=== PATIENT | female | born 1930 | race Caucasian/White ===

== ENCOUNTER 2020-03-18 22:16 | Inpatient (IN) | payer MEDICARE, OTHER ==
[~2020-03-18] VITALS: Ht 165.1 cm; Wt 64.7 kg
[~2020-03-18 22:16] MED LIST: ASPI81CH PO; B-COMPLEX WITH1 EAC1 PO; Calcium +D & M1 EACH PO; Cardizem LA240 MG PO; ENOX30I SC; FENTANYL1 EAC9 TD; GABA300 PO; HYDACE5 PO; LEVSOD125 PO; LEVSOD150 PO; LEVSOD25; METO25ER PO; Multiple Vitam1 EAC1 PO; OMEP20ER PO; OXYACE5T PO; OXYC10ER PO; OXYC5 PO; PRED5; PROM25 PO; RANI150 PO; SULTRIDS PO; XARELTO15 MG PO
[2020-03-18 23:00] LABS: Hematocrit 46.4 % (33.0-51.0); Hemoglobin 14.7 g/dL (11.5-16.0); Mean Corpuscular HGB 33.5 pg (26.0-34.0); Mean Corpuscular HGB Conc 31.7 g/dL (31.5-36.5); Mean Corpuscular Volume 106 fL (80-100); Mean Platelet Volume 8.7 fL (9.1-12.4); Platelet Count 213 K/mm3 (150-400); RDW Coefficient Variation 12.6 % (11.7-14.2); RDW Standard Deviation 49.7 fL (35.1-46.3); Red Blood Cell Count 4.39 M/mm3 (3.80-5.20); White Blood Cell Count 1.97 K/mm3 (4.00-11.30)
[2020-03-18 23:17] LABS: Alanine Aminotransfer (ALT/SGP 14 U/L (12-78); Albumin, Blood 2.9 g/dL (3.4-5.0); Albumin/Globulin Ratio 0.8 (0.8-1.8); Alk Phos 48 U/L (50-136); Anion Gap 7 mmol/L (6-16); Aspartate Aminotrans (AST/SGOT 30 U/L (12-37); Bilirubin, Total 0.7 mg/dL (0.1-1.0); Blood Urea Nitrogen 22 mg/dL (8-24); Bun/Creatinine Ratio 23.5 (12.0-20.0); CO2, Blood 28 mmol/L (21-32); Calcium, Blood 8.5 mg/dL (8.5-10.1); Chloride, Blood 100 mmol/L (98-108); Creatinine, Blood 0.94 mg/dL (0.40-1.00); Globulin, Blood 3.5 g/dL (2.2-4.0); Glomerular Filtration Rate >60 (60-); Glucose, Blood 166 mg/dL (70-99); Potassium, Blood 4.4 mmol/L (3.5-5.5); Sodium, Blood 135 mmol/L (136-145); Total Protein, Blood 6.4 g/dL (6.4-8.2)
[2020-03-18 23:37] LABS: BAND PERCENT MAN 31 % (0-8); BASOPHILS ABSOLUTE MAN 0.01 K/mm3 (0.00-0.23); BASOPHILS PERCENT MAN 1 % (0-2); EOSINOPHILS PERCENT MAN 0 % (0-6); LYMPHOCYTES ABSOLUTE MAN 0.27 K/mm3 (0.84-5.20); LYMPHOCYTES PERCENT MAN 14 % (21-46); MONOCYTES ABSOLUTE MAN 0.19 K/mm3 (0.16-1.47); MONOCYTES PERCENT MAN 10 % (4-13); NEUTROPHILS ABSOLUTE MAN 1.47 K/mm3 (1.96-9.15); SEG NEUTROPHILS PERCENT MAN 44 % (41-73); TOTAL CELLS COUNTED 100
[2020-03-19 00:56] LABS: CHOL/HDL RATIO 2.3; Cholesterol 146 mg/dL (50-200); HDL Cholesterol 64 mg/dL (>39); Low Density Lipoprotein Chol 64 mg/dL (0-110); Triglycerides 89 mg/dL (30-160); Very Low Density Lipoprot Chol 17 mg/dL (6-32)
--- NOTE | 2020-03-19 01:40 | NUR ---
0134 PT ADMITTED TO ROOM 343 PER CART FROM ER AFTER SLIDE TO BED X 4 ASSIST; PT VERY DROUSY; ABLE TO FOLLOW SIMPLE VERBAL COMMANDS; REPORT RECEIVED FROM CONNOR RN, ER NURSE
[2020-03-19] MEDS ORDERED: SULTRIDS PO (02:13)
--- NOTE | 2020-03-19 02:13 | NUR ---
THIS NURSE CALLED DR HUNT AND CONFIRMED MD DESIRES NGT PLACEMENT.
[2020-03-19] MEDS ORDERED: PROM25 PO (02:14)
--- NOTE | 2020-03-19 05:19 | NUR ---
Pt vomitting At 0215 RN was placing NG Tube causing pt to vomit. Changed linens, gown and did partial bed bath. Pt all cleaned up and now resting peacefully.
--- NOTE | 2020-03-19 05:52 | NUR ---
SHIFT SUMMARY: 89 Y/O FEMALE RESTED COMFORTABLY ALL SHIFT; PTS RIGHT KNEE DRESSING DRY AND INTACT WITH 3 X 3 CM OLD DRIED DRAINAGE NOTED; PTS HAD LARGE EMESIS BLACK FOOD PARTICLES WHEN NGT WAS INITIALLY INSERTED VIA LEFT NARE WITH NO MORE EMESIS NOTED; PROTONIX INFUSING AT 10ML/HR; ALERT AND ORIENTED X 4; VERY DROWSY AT TIMES, HOWEVER; ABLE TO FOLLOW ALL SIMPLE VERBAL COMMANDS; PT CURENTLY NPO; DENIES ABD PAIN; BED ALARM APPLIED, BED LOW POSITION WITH CALL LIGHT AT SIDE.
[2020-03-19 07:43] LABS: Source, Urine Clean Catch
[2020-03-19 07:48] LABS: Appearance, Urine Hazy (Clear); Blood, Urine 2+ (Neg); Color, Urine Yellow (P-Yellow); Glucose Qualitative, Urine 1+ (Neg); Ketones, Urine 1+ (Neg); Leukocyte Esterase, Urine 2+ (Neg); Nitrite, Urine Neg (Neg); Protein, Urine 2+ (Neg); Urobilinogen, Urine NORM (Normal)
[2020-03-19 07:54] LABS: Bilirubin, Urine 1+ (Neg)
[2020-03-19 07:58] LABS: Bacteria Mod /hpf; Red Blood Cells, Urine 0-2 /hpf (0-2); Squamous Epithelial Cells Few /hpf (Few)
[2020-03-19 08:00] LABS: Other Crystals Many /hpf
--- NOTE | 2020-03-19 08:00 | NUR ---
WHEN I CAME ON SHIFT THE PATIENT'S HEARTRATE WAS 133. SHE HAD A VEWS SCORE OF [address] FOWLER AND CHECKED WITH THE PATIENT. NEW VITALS TAKEN. ONE 5MG PUSH OF LOPRESSOR GIVEN PRIOR TO THE Q6 CUT OFF PER DR. FOWLER ORDERS. PATIENTS HEART RATE LOWERED TO 105. PATIENT WAS SEEN BY DR. GILMORE. SHE IS TO HAVE SURGERY THIS MORNING. CONSULT PLACED IN CHART, NO ACUTE CONCERNS AT THIS TIME MINUS THE ABDOMINAL PAIN. SHE CURRENTLY HAS AN NG TUBE AND IS NPO. SHE COMPLAINS OF CONCERN ABOUT HER DAUGHTER BEING AWARE OF WHAT IS GOING ON. WILL NOTIFY THE DAUGHTER WHEN SHE GOES TO OR PER PATIENT REQUEST.
--- NOTE | 2020-03-19 08:34 | NUR ---
History, Chart, Medications and Allergies reviewed before start of procedure. Patient confirms NPO status and agrees with scheduled surgery. Pre-Op teaching done. Pt verbalizes understanding. pt with ng tube.
--- NOTE | 2020-03-19 09:07 | NUR ---
03/19/20 0907 Kathy Jain PT ON SCHEDULED ANTIBIOTICS
--- NOTE | 2020-03-19 09:14 | NUR ---
CALLED DAY RN FOR REPORT. RN UNAVAILABLE AND WILL CALL BACK WITH REPORT WHEN ABLE.
--- NOTE | 2020-03-19 10:00 | NUR ---
PT ARRIVED S/P EXPLORATORY LAPROSCOPY FROM OR. NO MOVEMENT SEEN AT THIS TIME. PT REMAINS PARALYZED AT THIS TIME. PROPOFOL AT 20 MCG/KG/MIN ADDED FOR PT COMFORT AT THIS TIME. PT WILL REMAINS INTUBATED AT THIS TIME OR TEAM IS CONCERNED PT ASPIRATED WHEN SHE VOMITED IN THEIR UNIT. LUNGS ARE CLEAR BUT DIMINISHED IN THE BILATERAL BASES. SP02 >90% ON VENT SETTINGS OF AC-20/TV-400/P-5-FI02 100%. HOWEVER, PT'S EXTREMITIES ARE VERY COOL AND IT IS DIFFICULT TO OBTAIN CONSISTENT SP02 READING. HR REGULAR, SLIGHTLY IRREGULAR AT TIMES WITH FREQUENT PAC'S, RATE INITIALLY 80'S RANGE. ABD SOFT/FLAT/WITH VERY HYPOACTIVE BT'S X4 QUADS. PT HAS A MOISES MIDLINE DRSG THAT IS C/D/I WITH A SUMEET DRAIN TO RT LOWER QUADS DRAINING SEROSANGUINOUS FLD. MARS CATH DRAINING HAZY DARK, TEA COLORED URINE.
--- NOTE | 2020-03-19 10:00 | NUR ---
POLAR PACK PLACED ON RT KNEE R/T VERY RECENT (COMPLICATED) RT KNEE REPLACEMENT.
[2020-03-19 11:11] LABS: Hematocrit 42.3 % (33.0-51.0); Mean Corpuscular HGB 33.5 pg (26.0-34.0); Mean Corpuscular HGB Conc 30.7 g/dL (31.5-36.5); Mean Corpuscular Volume 109 fL (80-100); Platelet Count 158 K/mm3 (150-400); RDW Coefficient Variation 13.1 % (11.7-14.2); RDW Standard Deviation 52.4 fL (35.1-46.3); Red Blood Cell Count 3.88 M/mm3 (3.80-5.20); White Blood Cell Count 3.95 K/mm3 (4.00-11.30)
--- NOTE | 2020-03-19 11:15 | NUR ---
DR LAMAS IN TO CONSULT ON PT. UPDATED DR ON PT'S CURRENT STATUS. PT'S ETT/NGT PLACEMENT CONFIRMED PER STAT CHEST XRAY DONE ONCE PT ARRIVED TO THE UNIT.
[2020-03-19 11:43] LABS: BAND PERCENT MAN 21 % (0-8); BASOPHILS PERCENT MAN 0 % (0-2); EOSINOPHILS PERCENT MAN 0 % (0-6); LYMPHOCYTES ABSOLUTE MAN 0.51 K/mm3 (0.84-5.20); LYMPHOCYTES PERCENT MAN 13 % (21-46); METAMYELOCYTE ABSOLUTE MAN 0.03 K/mm3 (0.00-0.00); METAMYELOCYTE PERCENT MAN 1 % (0-0); MONOCYTES ABSOLUTE MAN 0.27 K/mm3 (0.16-1.47); MONOCYTES PERCENT MAN 7 % (4-13); NEUTROPHILS ABSOLUTE MAN 3.12 K/mm3 (1.96-9.15); SEG NEUTROPHILS PERCENT MAN 58 % (41-73); TOTAL CELLS COUNTED 100
[2020-03-19 11:48] LABS: Albumin, Blood 1.9 g/dL (3.4-5.0); Albumin/Globulin Ratio 0.7 (0.8-1.8); Bun/Creatinine Ratio 24.6 (12.0-20.0); Calcium, Blood 7.3 mg/dL (8.5-10.1); Creatinine, Blood 1.14 mg/dL (0.40-1.00); Globulin, Blood 2.8 g/dL (2.2-4.0); Potassium, Blood 4.8 mmol/L (3.5-5.5); Total Protein, Blood 4.7 g/dL (6.4-8.2)
[2020-03-19 13:49] LABS: PCO2 Arterial 36.8 mmHg (35-45); PO2 Arterial 241 mmHg (80-100); pH Blood Arterial 7.38 (7.35-7.45)
--- NOTE | 2020-03-19 14:56 | NUR ---
Upon receiving an admit referral for spiritual care, I visit patient. Patient is non responsive to voice or touch. I tell patient who I am and what department I am from. Based on the information gathered at admit stating Cheondoism as patient's belief system, I pray a Cheondoism prayer. I notice no changes. I will continue to remain available to patient and family.
--- NOTE | 2020-03-19 17:10 | NUR ---
PT MEDICATED WITH FENTANYL IV SHE OPENED HER EYES AND INDICATED SHE HAD PAIN IN HER ABD DURING REPOSITIONING.
--- NOTE | 2020-03-19 17:39 | NUR ---
DR LUGO TO THE BEDSIDE TO ASSESS PT. CHANGED JURGEN DRSG TO RT KNEE AFTER CLEANING WITH HYDROGEN PEROXIDE. SCD'S IN PLACE BILATERAL, CLEARED TO BE ON RT LE PER DR LUGO. WORKING ON OBTAINING AN CPM MACHINE PER DR'S REQUEST. SEE NEW THERAPY AND WOUND CARE ORDERS FOR FURTHER DIRECTION ON CARE OF RT KNEE.
--- NOTE | 2020-03-19 18:34 | NUR ---
SHIFT SUMMARY: PT REMAINS INTUBATED AND SEDATED WITH 20MCG/KG/MIN OF PROPOFOL FOR COMFORT. PT WITH NO MOVEMENT SEEN MOST THE SHIFT UNTIL THE LAST REPOSITION, WHERE PT'S EYES OPENED, PT GRIMACED AND WHEN ASKED WHERE HER PAIN WAS, PT PATTED BELLY. PT MEDICATED WITH PROPOFOL AND APPEARS TO BE RESTING COMFORTABLY SINCE. PT HAS HAD A LT SIDED MASTECTOMY AND PRESSURE READ LOW WHEN PT INITIALY ARRIVED TO ICU AND BP WAS BEING TAKEN ON THE LT SIDE. LUNGS ARE CLEAR BUT REMAIN SOMEWHAT DIMINISHED IN THE BILATERAL BASES. HR SR/ST 90-100'S RANGE. PT REMAINS ON LR @ 200ML/HR AT THIS TIME. ZOSYN BEING GIVEN FOR ABX COVERAGE. PT HAD A TOTAL RT KNEE YESTERDAY 02/15 AND WAS D/C'D HOME YESTERDAY AFTERNOON. PT'S KNEE IS EDEMATOUS, WITH SIGNIFICANT ECCYMOSIS AND WHAT APPEARS TO BE HEMATOMA IN THE POSTERIOR KNEE. KRYSTAL HOSE/SCD'S ON BILATERALLY PER DR LUGO AND PT TO START CPM AND PASSIVE ROM WITH OT/PT UNTIL SHE IS FULLY AWAKE AND ABLE TO PARTICIPATE IN THERAPY HERSELF. PT WITH NGT TO RT NARES WITH SM AMT OF DARK BROWN OUTPUT FROM L.I.S. ABD SOFT/FLAT/NON-TENDER. MOISES WOUND DRSG REMAINS IN PLACE MID-LINE WITH RLQ SUMEET DRAIN WITH CONTINUED MODERATE AMTS OF SEROSANGUINOUS FLD. MARS DRAINING HAZY DARK TEA COLORED URINE. 325ML OUT THIS SHIFT. IN PLACE
--- NOTE | 2020-03-19 19:15 | NUR ---
REPORTED OFF TO THAIS JIMÉNEZ WHOM IS NOW GOING TO ASSUME CARE OF THIS PT.
[2020-03-19 22:51] LABS: Source, Urine Catheter
[2020-03-19 22:53] LABS: Bilirubin, Urine Neg (Neg); Blood, Urine 5+ (Neg); Glucose Qualitative, Urine Neg (Neg); Ketones, Urine Neg (Neg); Leukocyte Esterase, Urine Neg (Neg); Nitrite, Urine Neg (Neg); Protein, Urine 2+ (Neg); Specific Gravity, Urine 1.015 (1.003-1.022); Urobilinogen, Urine NORM (Normal)
[2020-03-19 22:55] LABS: Appearance, Urine Clear (Clear); Color, Urine Yellow (P-Yellow)
[2020-03-19 23:03] LABS: Amorphous Light (0-Heavy); Bacteria Few /hpf; Granular Casts 25-50 /lpf (0); Red Blood Cells, Urine 0-2 /hpf (0-2); Squamous Epithelial Cells Few /hpf (Few); White Blood Cells, Urine Rare /hpf (0-5)
--- NOTE | 2020-03-20 01:46 | NUR ---
ASSUMED PT CARE AT 1915 FROM THAIS MAHMOOD PT INTUBATED AND SEDATED. PT STILL ABLE TO OPEN EYES, NOD HEAD YES/NO TO QUESTIONS, AND FOLLOW COMMANDS WITH PROPROFOL AT 30MCG/KG/MIN. VENT SETTINGS: AC 14, TV 400, PEEP 5, FIO2 40%. PT HAS MOISES WOUND VAC TO MID ABDOMEN S/P EXPLORATORY LAP R/T PERFORATED DUODENOL ULCER. SUMEET DRAIN NOTED TO RLQ WITH MODERATE AMOUNTS OF SEROSANGUINEOUS DRAINAGE NOTED. RIGHT KNEE HAS AQUACEL INTACT WITH MINIMAL DRIED DRAINAGE NOTED TO DRESSING; CPM MACHINE ON AND NOTED TO BE AT 30 DEGREES OF FLEXION. POLAR ICE MACHINE WAS ALSO NOTED TO BE INTACT TO RIGHT KNEE D/T SWELLING/HEMATOMA. PT MEDICATED WITH FENTANYL FOR PAIN, WHICH PT WAS ABLE TO NOD HEAD "YES" TO MEDICATION BEING EFFECTIVE FOR PAIN. MARS CATHETER IS PATENT AND DRAINING DARK, DOLLY COLORED URINE TO GRAVITY; UA SENT D/T MARS BEING PLACED FOR SURGERY AND REMAINED IN PLACE D/T PT REMAINING INTUBATED/SEDATED. BILATERAL SOFT WRIST RESTRAINTS IN PLACE TO PROTECT VITAL TUBES/LINES.
[2020-03-20 03:26] LABS: Hematocrit 34.3 % (33.0-51.0); Hemoglobin 10.8 g/dL (11.5-16.0); Mean Corpuscular HGB 33.9 pg (26.0-34.0); Mean Corpuscular HGB Conc 31.5 g/dL (31.5-36.5); Mean Corpuscular Volume 108 fL (80-100); Platelet Count 145 K/mm3 (150-400); RDW Coefficient Variation 13.1 % (11.7-14.2); RDW Standard Deviation 52.7 fL (35.1-46.3); Red Blood Cell Count 3.19 M/mm3 (3.80-5.20); White Blood Cell Count 4.54 K/mm3 (4.00-11.30)
[2020-03-20 03:41] LABS: Albumin, Blood 2.8 g/dL (3.4-5.0); Anion Gap 9 mmol/L (6-16); Blood Urea Nitrogen 26 mg/dL (8-24); CO2, Blood 22 mmol/L (21-32); Calcium, Blood 7.6 mg/dL (8.5-10.1); Chloride, Blood 107 mmol/L (98-108); Creatinine, Blood 1.04 mg/dL (0.40-1.00); Glomerular Filtration Rate 53 (60-); Glucose, Blood 71 mg/dL (70-99); Phosphorus, Blood 2.5 mg/dL (2.5-4.9); Potassium, Blood 4.3 mmol/L (3.5-5.5); Sodium, Blood 138 mmol/L (136-145)
[2020-03-20 04:34] LABS: BAND PERCENT MAN 44 % (0-8); BASOPHILS PERCENT MAN 0 % (0-2); EOSINOPHILS PERCENT MAN 0 % (0-6); LYMPHOCYTES ABSOLUTE MAN 0.13 K/mm3 (0.84-5.20); LYMPHOCYTES PERCENT MAN 3 % (21-46); METAMYELOCYTE ABSOLUTE MAN 0.09 K/mm3 (0.00-0.00); METAMYELOCYTE PERCENT MAN 2 % (0-0); MONOCYTES ABSOLUTE MAN 0.18 K/mm3 (0.16-1.47); MONOCYTES PERCENT MAN 4 % (4-13); MYELOCYTE ABSOLUTE MAN 0.04 K/mm3 (0.00-0.00); MYELOCYTE PERCENT MAN 1 % (0-0); NEUTROPHILS ABSOLUTE MAN 4.08 K/mm3 (1.96-9.15); SEG NEUTROPHILS PERCENT MAN 46 % (41-73); TOTAL CELLS COUNTED 100
--- NOTE | 2020-03-20 06:29 | NUR ---
END OF SHIFT SUMMARY NO SIGNIFICANT CHANGES SINCE LAST ENTRY. PT REMAINS INTUBATED AND SEDATED. PROPOFOL AT 20MCG/KG/MIN. VENT SETTINGS: SPONTANEOUS WITH PRESSURE SUPPORT 7/5; FIO2 35%; RESP RATE 14-20'S; TV >350. PT PASSED SBT THIS MORNING, SEE RT NOTE. PT ABLE TO OPEN EYES TO VERBAL STIMULI, FOLLOW COMMANDS, AND NOD HEAD YES/NO TO QUESTIONS. MID ABDOMINAL, MOISES DRESSING, REMAINS CDI. SUMEET DRAIN CONTINUES TO DRAIN SEROSANGUINEIOUS DRAINAGE; ABOUT 80CC THIS SHIFT. RIGHT KNEE AQUACEL DRESSING REMAINS CDI. POLAR ICE PACK USED PER ORDERS. PT IS CURRENTLY RECEIVING CPM AT 45 DEGREES FLEXION; WILL INCREASE TO 90 TOLERATED BY PT AND PER ORDERS. MARS CATHETER REMAINS PATENT AND DRAINING DARK, TEA COLORED URINE TO GRAVITY. LR INFUSING AT 200MLS/HR VIA PERIPHERAL IV. BILATERAL WRIST RESTRAINTS REMAIN IN PLACE TO PROTECT VITAL TUBES/LINES. WILL CONTINUE TO MONITOR UNTIL REPORT IS HANDED OFF TO ONCOMING RN.
--- NOTE | 2020-03-20 07:15 | NUR ---
AM ASSESSMENT: PT REMAINS INTUBATED AND LIGHTLY SEDATED ON TITRATED PROPOFOL. PT WILL OPEN EYES TO VERBAL STIMULI AND ABLE TO ANSWER SIMPLE YES/NO QUESTIONS AND INDICATE WHERE HER PAIN IS. PT REMAINS IN SOFT/BILAT WRIST RESTRAINTS AT THIS TIME. LUNGS ARE CLEAR BUT VERY DIM IN THE RT BASES. SPO2 >90% ON VENT SETTINGS: SPOTANEOUS MODE/TV-400/P-5/FI02 35%. PT DOING WELL AND STAYING CALM ON SPONTANEOUS MODE WITH TV'S 350-400. HR IRREGULAR, SR ARRHYTHMIA AT TIMES WHEN HR IS INCREASED WITH OCASS/FREQ PAC'S. RATE 100-110'S. ABD IS MORE DISTENDED/FIRM THIS AM IN COMPARISON TO YESTERDAY/TENDER TO LIGHT PALPATION R/T SURGICAL REPAIR OR PERFORATION. MOISES WOUND VAC REMAINS IN PLACE TO MIDLINE INCISON. SUMEET DRAIN TO RLQ DRAINING SM AMT OF SEROSANGUIOUS FLD. MARS CATH DRAINING SMALL AMTS OF DARK DOLLY COLORED URINE TO GRAVITY. PT CURRENTLY HAS ICE TO HER RT KNEE R/T S/P TOTAL KNEE SURGERY DONE THIS LAST SUNDAY. PT CURRENTLY REC'ING CPM THERAPY ON RT KNEE. AQUACELL IN PLACE TO RT KNEE C/D/I WITH A LARGE AMT OF ECCHYMOSIS SURROUNDING SURGICAL SITE, WORSE AT THE POSTERIOR KNEE.
--- NOTE | 2020-03-20 07:16 | NUR ---
REC'D BEDSIDE REPORT FROM THAIS JIMÉNEZ AND AM NOW ASSUMING CARE OF PT. PT WILL OPEN EYES TO VOICE AND SHOOK HER HEAD YES, WHEN ASKED IF SHE WAS IN PAIN. PT NODDED AGAIN WHEN ASKED IF THE PAIN WAS IN HER ABD AND RT KNEE. PT MEDICATED W/FENTANYL IVP PER ORDERS FOR PAIN.
--- NOTE | 2020-03-20 09:00 | NUR ---
DR FOWLER HERE TO ASSESS PT. UPDATED WITH PT'S CURRENT STATUS AND POSSIBLE EXTUBATION.
--- NOTE | 2020-03-20 09:15 | NUR ---
DR LAMAS IN TO ASSESS PT. PROPOFOL DECREASED TO 15MCG/KG/MIN TO WAKE PT MORE IS ATTEMPT AT EXTUBATION. PT REMAINS CALM AT THIS TIME. SEE NEW ORDERS. LR DECREASED TO 75ML/HR.
--- NOTE | 2020-03-20 12:00 | NUR ---
PT EXTUBATED: PT EXTUBATED AFTER DOING WELL ON SPONTANEOUS MODE THIS AM. PT EXTUBATED BY RT KERA. PT PLACED ON 4L 02 VIA N/C AND MAINTAINS >90% ON RA. PT IMMEDIATELY ASKED FOR WATER. PT GIVEN ORAL SWABS TO CLEAN OUT MOUTH. WILL CONTINUE TO CLOSELY MONITOR PT.
--- NOTE | 2020-03-20 12:24 | NUR ---
PT C/O "VERY SORE THROAT." DISCUSSED WITH DR LAMAS. ORDERED LOZENGES TO ASSIST WITH SORE THROAT.
--- NOTE | 2020-03-20 19:00 | NUR ---
SHIFT SUMMARY: PT ALERT AND ORIENTED SINCE EXTUBATION. PT ABLE TO SELF SX THICK/DARK BROWN SPUTUM, AMT IS DECREASING PER PT. CALL LIGHT WITHIN REACH AND PT ABLE TO MAKE NEEDS KNOWN. INCREASE IN BT'S HEARD IN THE UPPER QUADRANTS, REMAINS VERY HYPO IN THE BILATERAL LOWER QUADS. PT WITH MIDLINE DRSG THAT IS A SM AMT OF DRIED BLOOD, OTHERWISE C/D/I WITH MOISES DRSG IN PLACE AND SUMEET DRAIN IN RT LOWER QUAD WITH SEROSANGUINOUS DRAINAGE -30ML OUT TODAY. PT STARTED ON PPN TODAY PER ORDERS. MARS WITH DARK DOLLY COLORED URINE DRAINING. RT KNEE WITH MUCH IMPROVEMENT IN REGARDS TO ECCHYMOSIS/SWELLING TODAY. PT WAS MEDICATED SEVERAL TIMES W/FENTANYL PER ORDERS FOR ABD/RT KNEE PAIN, WHICH WAS HELPFUL IN REDUCING PAIN FOR A SHORT PERIOD OF TIME. 2 TX'S OF CPM DONE ON THIS SHIFT, AND ICE BEING APPLIED PER ORDERS. PT WAS FEBRILE THIS SHIFT. WILL CONTINUE TO MONITOR. -PCU STATUS, TNX WHEN BED IS AVAILABLE.
--- NOTE | 2020-03-20 19:30 | NUR ---
REPORTED OFF TO THAIS KNIGHT WHOM IS NOW ASSUMING CARE OF THIS PT.
--- NOTE | 2020-03-20 20:00 | NUR ---
ASSUMED CARE OF PT AT 1915. REPORT RECEIVED AT BEDSIDE. PT PRESENTS IN BED. ALERT AND ORIENTED. PLEASANT AND COOPERATIVE WITH CARE AND ASSESSMENT. SUMEET DRAIN COMPRESSED. PIKOS DRESSING REMAINS TO SUCTION. PT DOES HAVE BOWEL TONES. CRYO PACK TO RIGHT KNEE. WILL REVIEW CHART AND PLAN OF CARE FOR THIS PT.
[2020-03-21 03:30] LABS: Hematocrit 33.7 % (33.0-51.0); Hemoglobin 10.7 g/dL (11.5-16.0); Mean Corpuscular HGB 33.4 pg (26.0-34.0); Mean Corpuscular HGB Conc 31.8 g/dL (31.5-36.5); Mean Corpuscular Volume 105 fL (80-100); Platelet Count 162 K/mm3 (150-400); RDW Coefficient Variation 13.2 % (11.7-14.2); RDW Standard Deviation 51.7 fL (35.1-46.3)
[2020-03-21 03:46] LABS: Albumin, Blood 2.3 g/dL (3.4-5.0); Anion Gap 6 mmol/L (6-16); Blood Urea Nitrogen 27 mg/dL (8-24); Bun/Creatinine Ratio 33.8 (12.0-20.0); CO2, Blood 26 mmol/L (21-32); Calcium, Blood 7.5 mg/dL (8.5-10.1); Chloride, Blood 109 mmol/L (98-108); Glomerular Filtration Rate >60 (60-); Glucose, Blood 92 mg/dL (70-99); Magnesium, Blood 2.2 mg/dL (1.6-2.4); Phosphorus, Blood 2.1 mg/dL (2.5-4.9); Potassium, Blood 3.7 mmol/L (3.5-5.5); Sodium, Blood 141 mmol/L (136-145); Triglycerides 83 mg/dL (30-160)
[2020-03-21 04:50] LABS: BAND PERCENT MAN 26 % (0-8); BASOPHILS PERCENT MAN 0 % (0-2); EOSINOPHILS ABSOLUTE MAN 0.08 K/mm3 (0.00-0.68); EOSINOPHILS PERCENT MAN 1 % (0-6); LYMPHOCYTES ABSOLUTE MAN 0.48 K/mm3 (0.84-5.20); LYMPHOCYTES PERCENT MAN 6 % (21-46); METAMYELOCYTE ABSOLUTE MAN 0.16 K/mm3 (0.00-0.00); METAMYELOCYTE PERCENT MAN 2 % (0-0); MONOCYTES ABSOLUTE MAN 0.24 K/mm3 (0.16-1.47); MONOCYTES PERCENT MAN 3 % (4-13); NEUTROPHILS ABSOLUTE MAN 7.12 K/mm3 (1.96-9.15); SEG NEUTROPHILS PERCENT MAN 62 % (41-73); TOTAL CELLS COUNTED 100
--- NOTE | 2020-03-21 07:22 | NUR ---
PT HAS HAD THIRD OF THREE TIMES WITH CPM DURING EVENING TIME. PT TOLERATED WELL AFTER BEING MEDICATED WITH 50 MCG FENTANYL. PT HAS HAD THREE BM'S THIS NIGHT. ONCE BEING INCONTINENT TO LOOSE BM WITH SOME SOFT FORMED STOOL. PT HAS NO COMPLAINTS OF NAUSEA. REMAINED IN AFIB MOST OF NIGHT WITH OCCASSIONAL RATES > 100. PT REMAINS ALERT AND ORIENTED. HAVE TRIALED PT WITH ICE CHIPS, AND THEN WITH WATER. PT HAS HAD NO OUTPUT FROM NG TUBE. NO COMPLAINTS OF NAUSEA. VSS.
--- NOTE | 2020-03-21 16:36 | NUR ---
SUMMARY Assumed care of pt at 0700. Bedside report received from Dennis PLASCENCIA. Pt A&O x 4. Answers questions. Follows commands. Verbalizes needs. Pt bedfast at this time. Pt on 2 LPM NC. Lungs clear, dim in bases. Nunez catheter draining yellow urine. Pt initially had clamped NG tube that was removed around 1200, after Dr Stahl rounded on patient. Provider aware that pt has been having BMs. States pt is okay to start clear liquid diet. States to give pt red items and assess SUMEET drainage. If drainage changes from serous to red, stop clear liquids and notify provider. Dr Wiggins in to see pt, cleaned and changed dressing to right knee. Pt used polar pack per orders for knee. CPM used for more about 5 hours, with brief breaks, as pt stated she was tolerating it well and would like to continue wearing it. Pt had several bowel movements into bedpan today. Oral pain control meds added to regimen per Dr Ramos. Diflucan also added as pt's daughter stated concern that pt has had recurrent vaginal yeast infections and pt is currently receiving antibiotics. Patient receiving PPN per orders. Pt transferred to surgical floor, room 215. Telephone report given to Denise PLASCENCIA. Chart, medications, and belongings transferred with patient. Family notified of transfer by patient.
--- NOTE | 2020-03-21 17:46 | NUR ---
SHORTNESS OF BREATH PT STARTED COMPLAINING OF SHORTNESS OF BREATH AT APPROXIMATELY 1645. RESPIRATORY RATE WAS INCREASED. TELE MONITOR REPORTED HR BETWEEN 115 AND 150, RHYTHM OF AFIB. PT WAS ALSO DIAPHORETIC. PT IS ALERT AND ORIENTED, SHE DENIES CHEST PAIN. DR. FOWLER NOTIFIED, ORDER TO TRANSFER PT TO PCU. ATTEMPT MADE TO CALL REPORT AT 1710 WHEN ROOM WAS ASSIGNED. ATTEMPT TO GIVE REPORT TO DEEPTI MEYERS AT 1745, AWAITING RETURN CALL AT THIS TIME. HR IS NOW RANGING FROM 90-119. PT REPORTS SHORTNESS OF BREATH IS BETTER. DR. FOWLER WAS NOTIFIED OF IMPROVEMENT, STILL PLAN FOR TRANSFER TO PCU AT THIS TIME. ORDER FOR D-DIMER. WILL CONTINUE TO MONITOR UNTIL REPOR TO ONCOMING RN.
--- NOTE | 2020-03-21 18:43 | NUR ---
PT TRANSFERRED TO PCU AT 1820. PT REMAINS ALERT AND ORIENTED. SHE IS STILL COMPLAINING OF SHORTNESS OF BREATH BUT REPORTED AND IMPROVEMENT FROM EARLIER. PT IS LESS DIAPHORETIC WELL. REPORT GIVEN TO DEEPTI MEYERS.
--- NOTE | 2020-03-21 18:51 | NUR ---
TRANSFER NOTE RECIEVED REPORT FROM THAIS ROA IN SURG. PT TO ROOM AT 1830 WITH CRISPIN PLASCENCIA. PT ORIENTED TO ROOM AND CALL LIGHT. CALLED TO CLARIFY PROTONIX AND LR ORDERS WITH DR FOWLER, ORDERS TO CONTINUE WITH CURRENT ORDERS. NOTIFIED DR FOWLER OF D-DIMER AND PT CONTINUED ELEVATED HR; NEW ORDERS FOR METOPROLOL ENTERED. DR FOWLER TO PLACE ORDERS FOR CTA. WILL CONTINUE TO MONITOR.
[2020-03-22 05:05] LABS: Hematocrit 27.4 % (33.0-51.0); Hemoglobin 8.7 g/dL (11.5-16.0); Mean Corpuscular HGB 33.7 pg (26.0-34.0); Mean Corpuscular HGB Conc 31.8 g/dL (31.5-36.5); Mean Corpuscular Volume 106 fL (80-100); Mean Platelet Volume 8.8 fL (9.1-12.4); Platelet Count 156 K/mm3 (150-400); RDW Coefficient Variation 13.3 % (11.7-14.2); RDW Standard Deviation 52.1 fL (35.1-46.3); Red Blood Cell Count 2.58 M/mm3 (3.80-5.20); White Blood Cell Count 7.25 K/mm3 (4.00-11.30)
[2020-03-22 05:34] LABS: Albumin, Blood 1.9 g/dL (3.4-5.0); Anion Gap 3 mmol/L (6-16); Blood Urea Nitrogen 23 mg/dL (8-24); Bun/Creatinine Ratio 38.7 (12.0-20.0); CO2, Blood 30 mmol/L (21-32); Calcium, Blood 7.6 mg/dL (8.5-10.1); Chloride, Blood 105 mmol/L (98-108); Glomerular Filtration Rate >60 (60-); Glucose, Blood 116 mg/dL (70-99); Magnesium, Blood 2.3 mg/dL (1.6-2.4); Phosphorus, Blood 1.6 mg/dL (2.5-4.9); Sodium, Blood 138 mmol/L (136-145)
--- NOTE | 2020-03-22 05:59 | NUR ---
SHIFT SUMMARY: PATIENT DISORIENTED UPON AWAKING SEVERAL TIMES, EASILY REORIENTED. MARS PATENT, SUMEET DRAIN PATENT WITH SEROSANGUINOUS DRAINAGE, ABDOMINAL INCISION DRESSING INTACT WITH NO SIGN OF NEW BLEEDING. RIGHT KNEE DRESSING CHANGED 03/21/20 AND IS C/D/I. CPM STARTED AT 2100 AND RAN FOR 2 HOURS PER MD ORDER. PAIN MEDICATION X3 THIS SHIFT. HR INCREASING TO 160'S, ORAL LOPRESSOR GIVEN WITH HR DECREASING TO 130'S. IV LOPRESSOR GIVEN APPROX 1 HR LATER AND HR DECREASED TO AVERAGE IN 90'S MAJORITY OF SHIFT. ALL OTHER VSS, CALL LIGHT WITHIN REACH, BED LOW AND LOCKED WITH EXIT ALARM ON.
[2020-03-22 06:36] LABS: BAND PERCENT MAN 18 % (0-8); BASOPHILS PERCENT MAN 0 % (0-2); EOSINOPHILS PERCENT MAN 0 % (0-6); LYMPHOCYTES ABSOLUTE MAN 0.21 K/mm3 (0.84-5.20); LYMPHOCYTES PERCENT MAN 3 % (21-46); MONOCYTES PERCENT MAN 0 % (4-13); MYELOCYTE ABSOLUTE MAN 0.14 K/mm3 (0.00-0.00); MYELOCYTE PERCENT MAN 2 % (0-0); NEUTROPHILS ABSOLUTE MAN 6.88 K/mm3 (1.96-9.15); SEG NEUTROPHILS PERCENT MAN 77 % (41-73); TOTAL CELLS COUNTED 100
--- NOTE | 2020-03-22 11:00 | NUR ---
PT TRANSFERRED FROM PCU, A&OX4, VSS, 2LNC/TCDB EDU & ENC. RLE AQUACEL D/I, CPM IN PLACE, TEDS ON. ABD MOISES D/I, SUMEET RLQ SEROUS/SL PINK. MARS PATENT & DRAINING YELLOW URINE, STAT LOCK ON, OFF FLOOR. TCDB EDU & ENC. TPN @ 96 MLS/HR, PROTONIX @ 10 MLS/HR. PAIN: 5 MG OXY. DIETARY IN TO PLAN DIET WITH PT. PT AND OT CHECKED IN WITH PT TO ARRANGE FOR THIS AFTERNOON.
--- NOTE | 2020-03-22 14:54 | NUR ---
Echocardiogram completed.
--- NOTE | 2020-03-22 14:58 | NUR ---
Echocardiogram completed.
--- NOTE | 2020-03-22 19:39 | NUR ---
SHIFT SUMMARY PT A&OX2-3, VSS, PAIN MANAGED PER EMAR. ISAEL FL DIET. STAND PIVOT TO CHAIR 2 PP MAX ASSIST. MARS PATENT & DRAINING YELLOW URINE. REPORT GIVEN TO ALYSSA PLASCENCIA.
--- NOTE | 2020-03-23 02:13 | NUR ---
@2145 Patient had increased work of breathing with accessory muscle use. O2 sat 97% on 2LNC, lungs clear in the upper lobes and end expiratory wheeze in the lt base. no crackles. Notified FRANCESCA Mcginnis, obtained order for RT eval. UDN of Proventil, no change in pt condition. @2345 called FRANCESCA Mcginnis and order for duoneb and BIPAP. Patient refused BIPAP due to anxiety issues with something over her face. Duoneb was given and within 10 minutes pateint needed to cough up large amounts of clear/ cream colored mucus. Suction was set up for patient to use a Yankauer per patient request. Patient was also given 40 mg of IV lasix @0046. by 0200 patient had 900cc of urine out. patient states that she is breathing better. she has been able to sleep this am. Will continue to monitor patient for respiratory discress.
[2020-03-23 04:46] LABS: Hematocrit 29.9 % (33.0-51.0); Hemoglobin 9.2 g/dL (11.5-16.0); Mean Corpuscular HGB Conc 30.8 g/dL (31.5-36.5); Mean Corpuscular Volume 107 fL (80-100); NRBC ABSOLUTE 0.05 K/mm3 (0.00-0.02); NRBC Auto 0.6 /100 WBC (0.0-0.2); Platelet Count 167 K/mm3 (150-400); RDW Coefficient Variation 13.2 % (11.7-14.2); Red Blood Cell Count 2.79 M/mm3 (3.80-5.20)
[2020-03-23 05:02] LABS: Alanine Aminotransfer (ALT/SGP 133 U/L (12-78); Albumin/Globulin Ratio 0.6 (0.8-1.8); Alk Phos 41 U/L (50-136); Anion Gap 5 mmol/L (6-16); Aspartate Aminotrans (AST/SGOT 67 U/L (12-37); Bilirubin, Total 0.6 mg/dL (0.1-1.0); Blood Urea Nitrogen 19 mg/dL (8-24); Bun/Creatinine Ratio 33.9 (12.0-20.0); CO2, Blood 32 mmol/L (21-32); Calcium, Blood 7.9 mg/dL (8.5-10.1); Chloride, Blood 101 mmol/L (98-108); Creatinine, Blood 0.56 mg/dL (0.40-1.00); Globulin, Blood 3.1 g/dL (2.2-4.0); Glomerular Filtration Rate >60 (60-); Glucose, Blood 123 mg/dL (70-99); Magnesium, Blood 2.3 mg/dL (1.6-2.4); Potassium, Blood 3.9 mmol/L (3.5-5.5); Sodium, Blood 138 mmol/L (136-145); Total Protein, Blood 5.1 g/dL (6.4-8.2)
[2020-03-23 05:48] LABS: BAND PERCENT MAN 20 % (0-8); BASOPHILS PERCENT MAN 0 % (0-2); EOSINOPHILS PERCENT MAN 0 % (0-6); LYMPHOCYTES ABSOLUTE MAN 0.62 K/mm3 (0.84-5.20); LYMPHOCYTES PERCENT MAN 7 % (21-46); MONOCYTES ABSOLUTE MAN 0.08 K/mm3 (0.16-1.47); MONOCYTES PERCENT MAN 1 % (4-13); NEUTROPHILS ABSOLUTE MAN 8.18 K/mm3 (1.96-9.15); SEG NEUTROPHILS PERCENT MAN 72 % (41-73); TOTAL CELLS COUNTED 100
--- NOTE | 2020-03-23 05:57 | NUR ---
Patient was able to sleep for the majority of the morning. She had 1750+cc of urine output. Her HR trends have gone from the 110's to the 120's with spikes to the 160's for <30seconds. she is getting PO meds for abdominal and/or knee pain per EMAR. her lungs are clear with a less pronounced audible wheeze heard at the door. patient able to do oral care this am and wash her face. She stated that her breathing is much improved over last night. call light, Gene, and telephone are in reach. She spoke with her by phone this am.
--- NOTE | 2020-03-23 16:49 | NUR ---
SHIFT SUMMARY PT A&OX3, OCC CONFUSION/REORIENTS EASILY. PAIN MANAGED WITH 5 MG OXY. ISAEL FL DIET; VERY LOW PO INTAKE. STOOD AT SIDE OF BED X4 W/FWW; STAND TRANSFER 2 PP MAX ASSIST TO CHAIR; UP TO CHAIR [id number]. CPM 2X THIS SHIFT. TELE AFIB @ 125. 2LNC. SUCTION AT BEDSIDE. TPN @ 96 MLS/HR; PROTONIX @ 10 MLS/HR. MARS PATENT & DRAINING YELLOW URINE. SUMEET RLQ. WILL REPORT TO ONCOMING ARNIE PLASCENCIA.
--- NOTE | 2020-03-24 05:53 | NUR ---
SHIFT SUMMARY: LORELEI AROUSES EASILY TO VOICE AND RESPONDS APPROPRIATELY. SHE IS COMPLAINING OF FEELING UNABLE TO CLEAR HER THROAT THIS MORNING. SHE DOES USE THE SUCTION INDEPENDENTLY, ORAL CARE PROVIDED. SHE IS ALSO COMPLAINING OF GAS PAIN AND PAIN IN HER KNEE, FOR WHICH 5 MG OF OXYCODONE HAS BEEN ADMINISTERED. MARS PATENT, ADEQUATE URINE OUTPUT. SHE IS ABLE TO MAKE HER NEEDS KNOWN, USES THE CALL LIGHT APPROPRIATELY. IV TO LEFT FA INFUSING PROTONIX, POWERGLIDE TO CHARIS INFUSING TPN. SHE IS LYING IN BED WITH HER CALL LIGHT IN REACH. WILL REPORT TO DAY SHIFT RN.
--- NOTE | 2020-03-24 14:07 | NUR ---
CHANGED DRESSING TO RLE PER ORDERS.
--- NOTE | 2020-03-24 14:40 | NUR ---
performed oral care
--- NOTE | 2020-03-24 17:57 | NUR ---
SUMMARY PT SLEEPING AT THIS TIME, HAS SLEPT OFF AND ON DURING SHIFT. . 02 SATS STABLE ON 2L NC. MEDICATED TWICE DURING SHIFT TODAY FOR PAIN. FIRST TIME FOR ABDOMINAL PAIN AND 2ND TIME FOR RLE PAIN. PT GOT UP TO CHAIR W/THERAPY. TWO PERSON MAX ASSIST BACK TO BED. USED CPM FOR TWO HOURS. RLE BECAME PAINFUL AFTER CPM. REPOSITIONED AND RUBBED PT'S LEG FOR COMFORT. POLAR PACK IN POSITION. PT VERY WEAK. NEEDED ASSISTANCE W/MEALS. PRODUCING THICK SPUTUM WHICH PT SUCTIONS INDPENDENTLY. PERFORMED ORAL CARE. PT BELCHES WHENEVER SIPS WATER. DISCUSSED W/DR Rand REDDING AND OBTAINED ORDERS FOR SWALLOW EVAL, WHICH IS PENDING. FAMILY IN TO SEE PT TODAY. CALL LIGHT IN REACH. CHANGED DRESSING TO RLE THIS SHIFT PER ORDERS. CALL LIGHT IN REACH.
--- NOTE | 2020-03-24 20:14 | NUR ---
PHONE CALL OUT TO [facility] REGARDING GENREAL ASSESSMENT AND RESPIRATORY STATUS WAITING RETURN CALL.
--- NOTE | 2020-03-24 20:33 | NUR ---
SPOKE WITH NICHOLAS.ORDER RECEIVED FOR CONTINUOUS PULSE OX.
--- NOTE | 2020-03-25 03:31 | NUR ---
NOTIFIED PER [facility] LANDSCAPE AND YARDWORK LABORER AND CIVIL CAD DESIGNER, PT WITH RHYTHMN CHANGE TO A FLUTTER WITH RATE INCREASING TO 133. PT DENIES CP OR SOB. O2 VIA N/C IN MOUTH PT IS MOUTH BREATHING AND SATS 87-88% WHEN N/C IN NOSE.SEE VS. PT HYPOTENSIVE. I CALLED DR DURBIN PRN LOPRESSER ORDER AVAILABLE ,BUT I BEING HESITANT TO GIVE DUE TO DROP IN BP.TOTAL OUTPUT SO FAR ONLY [address] DURBIN REVEIEWED HX AND CURRENT STATUS,VS,I/O,HOME MED LIST WELL MEDS GIVEN WHILE HERE.DOCTOR MADE ROUND TO CHECK ON PT.DIGOXIN IV ORDERED X1 HOPING TO CONTROL RATE WHILE MAINTAINING BP.
[2020-03-25 04:37] LABS: Hematocrit 27.5 % (33.0-51.0); Hemoglobin 8.6 g/dL (11.5-16.0); Mean Corpuscular HGB 33.7 pg (26.0-34.0); Mean Corpuscular HGB Conc 31.3 g/dL (31.5-36.5); Mean Corpuscular Volume 108 fL (80-100); Mean Platelet Volume 9.9 fL (9.1-12.4); NRBC ABSOLUTE 0.04 K/mm3 (0.00-0.02); NRBC Auto 0.3 /100 WBC (0.0-0.2); Platelet Count 214 K/mm3 (150-400); RDW Coefficient Variation 13.6 % (11.7-14.2); RDW Standard Deviation 53.8 fL (35.1-46.3); Red Blood Cell Count 2.55 M/mm3 (3.80-5.20); White Blood Cell Count 14.56 K/mm3 (4.00-11.30)
[2020-03-25 04:54] LABS: BAND PERCENT MAN 23 % (0-8); BASOPHILS PERCENT MAN 0 % (0-2); EOSINOPHILS PERCENT MAN 0 % (0-6); LYMPHOCYTES ABSOLUTE MAN 0.58 K/mm3 (0.84-5.20); LYMPHOCYTES PERCENT MAN 4 % (21-46); METAMYELOCYTE ABSOLUTE MAN 0.14 K/mm3 (0.00-0.00); METAMYELOCYTE PERCENT MAN 1 % (0-0); MONOCYTES ABSOLUTE MAN 0.43 K/mm3 (0.16-1.47); MONOCYTES PERCENT MAN 3 % (4-13); NEUTROPHILS ABSOLUTE MAN 13.39 K/mm3 (1.96-9.15); SEG NEUTROPHILS PERCENT MAN 69 % (41-73); TOTAL CELLS COUNTED 100
--- NOTE | 2020-03-25 05:02 | NUR ---
GAVE DIGOXIN PER ORDERS. NO CHANGE NOTED. CONTINUES A FLUTTER WITH RATE OF 132.WBC ELEVATION THIS AM. I NOTIFIED DR DURBIN.ORDERS RECEIVED FOR LACTIC DRAW AND ADDITIONAL DOSE OF DIGOXIN.
[2020-03-25 05:04] LABS: Anion Gap 1 mmol/L (6-16); Blood Urea Nitrogen 18 mg/dL (8-24); Bun/Creatinine Ratio 27.7 (12.0-20.0); CO2, Blood 35 mmol/L (21-32); Calcium, Blood 7.9 mg/dL (8.5-10.1); Chloride, Blood 97 mmol/L (98-108); Creatinine, Blood 0.65 mg/dL (0.40-1.00); Glomerular Filtration Rate >60 (60-); Glucose, Blood 88 mg/dL (70-99); Phosphorus, Blood 3.2 mg/dL (2.5-4.9); Potassium, Blood 5.7 mmol/L (3.5-5.5); Sodium, Blood 133 mmol/L (136-145)
--- NOTE | 2020-03-25 06:31 | NUR ---
SUMMARY GAVE ADDITIONAL DOSE OF DIGOXIN WITH PT CURRENTLY IN AFIB AND RATE VARIABLE 89-120 PER RADIAL DRILL PRESS SET UP OPERATOR REPORT.PT RECEIVED 1 PO PAIN PILL THIS SHIFT, WITH INCREASED SEDATION AND RESP ALSO MORE SHALLOW DR DURBIN AWARE. WILL CONT TO MONITOR.DOCTORS ALERTED T/O NIGHT TO STATUS OF PT AND VS,I/O SEE ALL ORDERS.
--- NOTE | 2020-03-25 08:59 | NUR ---
POWER GLIDE R UPPER ARM POWER GLIDE IS DIFFICULT TO FLUSH BUT IS STILL WORKING. L UPPER ARM POWER GLIDE FLUSHES WELL.
--- NOTE | 2020-03-25 11:42 | NUR ---
BOLUS STARED AT APPROXIMATELY 0810 TO HELP IMPROVE BLOOD PRESSURE. BLOOD PRESSURE IMPROVED BY HR REMAINED ELEVATED AT 133. PT GIVEN LOPRESSOR ORDERED, HER HAS LOWERED TO THE 70s BUT PT REMAINS IN AFLUTTER. WILL CONTINUE TO MONITOR.
[2020-03-25 15:08] LABS: Alanine Aminotransfer (ALT/SGP 62 U/L (12-78); Albumin, Blood 1.5 g/dL (3.4-5.0); Albumin/Globulin Ratio 0.4 (0.8-1.8); Alk Phos 59 U/L (50-136); Anion Gap 5 mmol/L (6-16); Aspartate Aminotrans (AST/SGOT 47 U/L (12-37); Bilirubin, Total 0.6 mg/dL (0.1-1.0); Blood Urea Nitrogen 17 mg/dL (8-24); Bun/Creatinine Ratio 23.9 (12.0-20.0); CO2, Blood 32 mmol/L (21-32); Calcium, Blood 7.7 mg/dL (8.5-10.1); Chloride, Blood 99 mmol/L (98-108); Creatinine, Blood 0.71 mg/dL (0.40-1.00); Globulin, Blood 3.4 g/dL (2.2-4.0); Glomerular Filtration Rate >60 (60-); Glucose, Blood 122 mg/dL (70-99); Potassium, Blood 4.7 mmol/L (3.5-5.5); Sodium, Blood 136 mmol/L (136-145); Total Protein, Blood 4.9 g/dL (6.4-8.2)
--- NOTE | 2020-03-25 15:21 | NUR ---
INCREASED HR PT'S HR HAS INCREASED TO 120'S DURING BED BATH. PT DOES NOT COMPLAIN OF SHORTNESS OF BREATH AT THIS TIME. HR APPEARS TO BE DECREASING AND IS CURRENTLY 100BPM AND AFIB. WILL CONTINUE TO MONITOR.
--- NOTE | 2020-03-25 17:10 | NUR ---
SHIFT SUMMARY PT IS IN AFIB/AFLUTTER TODAY. RATE HAS BEEN MOSTLY CONTROLLED BETWEEN 60 AND 80. PT HAS HAD A MORE ELEVATED HR THIS AFTERNOON WHEN SHE WAS REPOSITIONED. HER HR INCREASED TO 130 BUT APPEARS TO HAVE IMPROVED TO LESS THAN 100BMP AT THIS TIME. PT HAS HAD DECREASED URINE OUTPUT OF 260ML THIS SHIFT. ATTEMPT TO CALL DR. Yennifer REDDING AT 1639 AND 1704, AWAITING RETURN CALL AT THIS TIME. PT'S BLOOD PRESSURE HAS IMPROVED AFTER FLUID BOLUS. SBP HAS REMAINED >100. PT HAS REMAINED IN BED THIS SHIFT SINCE SHE BECOMES TACHYCARDIC WITH MILD ACTIVITY. VSS. WILL MONITOR UNTIL REPORT TO ONCOMING RN.
--- NOTE | 2020-03-25 19:24 | NUR ---
SHORT OF BREATH PT BECAME SHORT OF BREATH AT 1830. SHE STARTED COUGHING UP LARGE AMOUNTS OF THICK, ALEXANDER SPUTUM. PT WAS GIVEN A FLUTTER VALVE AND EDUCATED TO USE. RESPIRATORY THERAPY CALLED FOR BREATHING TREATMENT. PT IS NOW ASLEEP WITH HER GRANDDAUGHTER AT THE BEDSIDE.
[2020-03-26 04:03] LABS: Hematocrit 25.3 % (33.0-51.0); Hemoglobin 7.8 g/dL (11.5-16.0); Mean Corpuscular HGB 33.5 pg (26.0-34.0); Mean Corpuscular HGB Conc 30.8 g/dL (31.5-36.5); Mean Corpuscular Volume 109 fL (80-100); Mean Platelet Volume 9.3 fL (9.1-12.4); NRBC ABSOLUTE 0.02 K/mm3 (0.00-0.02); NRBC Auto 0.1 /100 WBC (0.0-0.2); Platelet Count 241 K/mm3 (150-400); RDW Coefficient Variation 13.4 % (11.7-14.2); RDW Standard Deviation 54.1 fL (35.1-46.3); Red Blood Cell Count 2.33 M/mm3 (3.80-5.20); White Blood Cell Count 13.46 K/mm3 (4.00-11.30)
[2020-03-26 04:15] LABS: Anion Gap 3 mmol/L (6-16); Blood Urea Nitrogen 18 mg/dL (8-24); Bun/Creatinine Ratio 28.5 (12.0-20.0); CO2, Blood 32 mmol/L (21-32); Calcium, Blood 7.5 mg/dL (8.5-10.1); Chloride, Blood 101 mmol/L (98-108); Creatinine, Blood 0.63 mg/dL (0.40-1.00); Glomerular Filtration Rate >60 (60-); Glucose, Blood 124 mg/dL (70-99); Potassium, Blood 4.3 mmol/L (3.5-5.5); Sodium, Blood 136 mmol/L (136-145)
[2020-03-26 04:22] LABS: BAND PERCENT MAN 18 % (0-8); BASOPHILS PERCENT MAN 0 % (0-2); EOSINOPHILS ABSOLUTE MAN 0.13 K/mm3 (0.00-0.68); EOSINOPHILS PERCENT MAN 1 % (0-6); LYMPHOCYTES ABSOLUTE MAN 0.53 K/mm3 (0.84-5.20); LYMPHOCYTES PERCENT MAN 4 % (21-46); MONOCYTES ABSOLUTE MAN 0.53 K/mm3 (0.16-1.47); MONOCYTES PERCENT MAN 4 % (4-13); NEUTROPHILS ABSOLUTE MAN 12.24 K/mm3 (1.96-9.15); SEG NEUTROPHILS PERCENT MAN 73 % (41-73); TOTAL CELLS COUNTED 100
--- NOTE | 2020-03-26 17:32 | NUR ---
Shift summary Patient receiving 2/2 bags of Clinimix. IV Protonix infusing. Pain controlled with [place]. SUMEET drain has minimal output but thick yellowish drainage in tubing. Patient had large soft bowel movement today. Catheter patent draining dark yellow urine. PO intake encouraged. MOISES dressing to abd. Polar ice pack in place to RLE. Family at bedside throughout the day. Call light within patient reach.
[2020-03-27 04:04] LABS: Hematocrit 29.4 % (33.0-51.0); Mean Corpuscular HGB 33.1 pg (26.0-34.0); Mean Corpuscular HGB Conc 30.6 g/dL (31.5-36.5); Mean Corpuscular Volume 108 fL (80-100); Mean Platelet Volume 9.4 fL (9.1-12.4); NRBC ABSOLUTE 0.03 K/mm3 (0.00-0.02); NRBC Auto 0.2 /100 WBC (0.0-0.2); Platelet Count 315 K/mm3 (150-400); RDW Coefficient Variation 13.5 % (11.7-14.2); RDW Standard Deviation 53.8 fL (35.1-46.3); Red Blood Cell Count 2.72 M/mm3 (3.80-5.20); White Blood Cell Count 17.63 K/mm3 (4.00-11.30)
[2020-03-27 04:21] LABS: Anion Gap 0 mmol/L (6-16); Blood Urea Nitrogen 19 mg/dL (8-24); Bun/Creatinine Ratio 30.6 (12.0-20.0); CO2, Blood 35 mmol/L (21-32); Calcium, Blood 7.9 mg/dL (8.5-10.1); Chloride, Blood 100 mmol/L (98-108); Creatinine, Blood 0.62 mg/dL (0.40-1.00); Glomerular Filtration Rate >60 (60-); Glucose, Blood 92 mg/dL (70-99); Potassium, Blood 4.7 mmol/L (3.5-5.5); Sodium, Blood 135 mmol/L (136-145)
[2020-03-27 04:56] LABS: BAND PERCENT MAN 13 % (0-8); BASOPHILS PERCENT MAN 0 % (0-2); EOSINOPHILS PERCENT MAN 0 % (0-6); LYMPHOCYTES PERCENT MAN 4 % (21-46); MONOCYTES ABSOLUTE MAN 0.35 K/mm3 (0.16-1.47); MONOCYTES PERCENT MAN 2 % (4-13); NEUTROPHILS ABSOLUTE MAN 16.57 K/mm3 (1.96-9.15); SEG NEUTROPHILS PERCENT MAN 81 % (41-73); TOTAL CELLS COUNTED 100
--- NOTE | 2020-03-27 08:00 | NUR ---
ASSUMED CARE OF PT AT 0030.NO ACUTE CHANGES.PT USES FLUTTER AND DENIES SOB.HEART RATE SLOWING.
--- NOTE | 2020-03-27 16:45 | NUR ---
shift summary resumed care of patient at 1200. Patient has been sleeping most of the afternoon. Patient wakes up quickly to verbal stimuli. Patient on 2L O2 via nasal cannula. Pain medication swtiched from [place] to Tramadol. Family at bedside throughout the day offering support. Call light within patient reach.
--- NOTE | 2020-03-28 05:01 | NUR ---
PATIENT SLEPT MOST OF THE NIGHT. SHE WOULD WAKE EVERY FEW HOURS AND STATE THAT SHE NEEDED TO HAVE HER POSTITION CHANGED. PATIENT IS ADJUSTED IN BED AND TURNED, SHE HAS DEPENDENT PITTING EDEMA OVER HER LT ARM AND RT LEG FROM HER HIPS TO HER ANKLES. MIDLINE DRESSING IS DRY AND INTACT. NO ACUTE CHANGES THROUGH OUT THE SHIFT.
[2020-03-28 05:32] LABS: BASOPHILS ABSOLUTE AUTO 0.03 K/mm3 (0.00-0.23); BASOPHILS PERCENT AUTO 0 % (0-2); Hematocrit 26.6 % (33.0-51.0); Hemoglobin 8.1 g/dL (11.5-16.0); LYMPHOCYTES ABSOLUTE AUTO 0.54 K/mm3 (0.84-5.20); LYMPHOCYTES PERCENT AUTO 4 % (21-46); MONOCYTES ABSOLUTE AUTO 0.42 K/mm3 (0.16-1.47); MONOCYTES PERCENT AUTO 3 % (4-13); Mean Corpuscular HGB 33.1 pg (26.0-34.0); Mean Corpuscular HGB Conc 30.5 g/dL (31.5-36.5); Mean Corpuscular Volume 109 fL (80-100); NRBC ABSOLUTE 0.02 K/mm3 (0.00-0.02); NRBC Auto 0.1 /100 WBC (0.0-0.2); Platelet Count 357 K/mm3 (150-400); RDW Coefficient Variation 13.7 % (11.7-14.2); RDW Standard Deviation 54.9 fL (35.1-46.3); Red Blood Cell Count 2.45 M/mm3 (3.80-5.20); White Blood Cell Count 13.58 K/mm3 (4.00-11.30)
[2020-03-28 05:47] LABS: Anion Gap 3 mmol/L (6-16); Blood Urea Nitrogen 19 mg/dL (8-24); Bun/Creatinine Ratio 27.5 (12.0-20.0); CO2, Blood 32 mmol/L (21-32); Calcium, Blood 7.6 mg/dL (8.5-10.1); Chloride, Blood 102 mmol/L (98-108); Creatinine, Blood 0.69 mg/dL (0.40-1.00); EOSINOPHILS ABSOLUTE AUTO 0.02 K/mm3 (0.00-0.68); EOSINOPHILS PERCENT AUTO 0 % (0-6); Glomerular Filtration Rate >60 (60-); Glucose, Blood 74 mg/dL (70-99); IMMATURE GRAN ABSOLUTE AUTO 0.12 K/mm3 (0.00-0.10); IMMATURE GRAN PERCENT AUTO 1 % (0-1); NEUTROPHILS ABSOLUTE AUTO 12.45 K/mm3 (1.96-9.15); NEUTROPHILS PERCENT AUTO 92 % (41-73); Potassium, Blood 4.8 mmol/L (3.5-5.5); Sodium, Blood 137 mmol/L (136-145); Triglycerides 105 mg/dL (30-160)
--- NOTE | 2020-03-28 16:11 | NUR ---
SHIFT SUMMARY PT CONT TO BE DROWSY TODAY. AWAKENS TO VERBAL STIMULI, BUT FALLS ASLEEP IMMEDIATELY AFTER. TYLENOL GIVEN FOR PAIN X1. POLAR PACK TO R KNEE AND DRESSING CDI. MIDLINE MOISES DRESSING REMAINS UNCHANGED FROM THIS MORNING. SUMEET WITH MINIMAL THICK SAL/LIGHT BROWN DRAINAGE. MARS PATENT WITH DARK DOLLY COLORED URINE. REPOSITIONING TOLERATED AND BLE ELEVATED ON PILLOWS. PT USES SUCTION WHEN COUGHING UP SPUTUM. 2L O2 VIA NC AND SATS >92% PER CONT BIOX. TELE IN PLACE. CHEST XRAY + ABD CT SCAN COMPLETED TODAY. FAMILY AT BEDSIDE FOR SUPPORT. CALL LIGHT WITHIN REACH.
[2020-03-29 04:31] LABS: BASOPHILS ABSOLUTE AUTO 0.06 K/mm3 (0.00-0.23); BASOPHILS PERCENT AUTO 1 % (0-2); Hematocrit 27.7 % (33.0-51.0); Hemoglobin 8.2 g/dL (11.5-16.0); LYMPHOCYTES ABSOLUTE AUTO 0.56 K/mm3 (0.84-5.20); LYMPHOCYTES PERCENT AUTO 4 % (21-46); MONOCYTES PERCENT AUTO 4 % (4-13); Mean Corpuscular HGB 33.1 pg (26.0-34.0); Mean Corpuscular HGB Conc 29.6 g/dL (31.5-36.5); Mean Corpuscular Volume 112 fL (80-100); Mean Platelet Volume 8.9 fL (9.1-12.4); NRBC ABSOLUTE 0.03 K/mm3 (0.00-0.02); NRBC Auto 0.2 /100 WBC (0.0-0.2); Platelet Count 433 K/mm3 (150-400); Red Blood Cell Count 2.48 M/mm3 (3.80-5.20); White Blood Cell Count 12.73 K/mm3 (4.00-11.30)
[2020-03-29 04:33] LABS: EOSINOPHILS ABSOLUTE AUTO 0.01 K/mm3 (0.00-0.68); EOSINOPHILS PERCENT AUTO 0 % (0-6); IMMATURE GRAN ABSOLUTE AUTO 0.11 K/mm3 (0.00-0.10); IMMATURE GRAN PERCENT AUTO 1 % (0-1); NEUTROPHILS ABSOLUTE AUTO 11.49 K/mm3 (1.96-9.15); NEUTROPHILS PERCENT AUTO 90 % (41-73)
[2020-03-29 04:52] LABS: Alanine Aminotransfer (ALT/SGP 24 U/L (12-78); Albumin, Blood 1.4 g/dL (3.4-5.0); Albumin/Globulin Ratio 0.4 (0.8-1.8); Alk Phos 54 U/L (50-136); Anion Gap 4 mmol/L (6-16); Aspartate Aminotrans (AST/SGOT 20 U/L (12-37); Bilirubin, Total 0.4 mg/dL (0.1-1.0); Blood Urea Nitrogen 16 mg/dL (8-24); Bun/Creatinine Ratio 22.7 (12.0-20.0); CO2, Blood 32 mmol/L (21-32); Calcium, Blood 7.7 mg/dL (8.5-10.1); Chloride, Blood 102 mmol/L (98-108); Creatinine, Blood 0.71 mg/dL (0.40-1.00); Globulin, Blood 3.9 g/dL (2.2-4.0); Glomerular Filtration Rate >60 (60-); Glucose, Blood 88 mg/dL (70-99); Potassium, Blood 4.5 mmol/L (3.5-5.5); Sodium, Blood 138 mmol/L (136-145); Total Protein, Blood 5.3 g/dL (6.4-8.2)
--- NOTE | 2020-03-29 06:38 | NUR ---
PATIENT WAS MUCH MORE COMFORTABLE LAST NIGHT. SHE IS MORE AWAKE AND ALERT, WAKING EASILY TO VERBAL STIM. NO ACUTE CHANGES
--- NOTE | 2020-03-29 12:00 | NUR ---
THERAPY: THERAPY IN ROOM TO WORK WITH PT TO MOBILIZE OOB TO CHAIR. PT PAIN AT TOLERABLE LEVEL, WILL CONT TO MONITOR.
--- NOTE | 2020-03-29 18:47 | NUR ---
PT POD #10 TODAY. PT REMAINS DECONDITIONED. PT/OT IN TO WORK WITH PATIENT. PT UP TO CHAIR FOR SEVERAL HOURS TODAY. CPM 2X THIS SHIFT 0-90 DEGREES. DRESSING CHANGED PER ORTHO. SUMEET PULLED PER SURGEON, MOISES REMAINS IN PLACE MIDLINE ABD. MADISYN HALL'Brianna, ATTENDS IN PLACE FOR COMFORT. PT ABLE TO VOID ON BEDPAN. PT STARTING TO HAVE FLATUS AND SMALL SOFT BM'S. CONT PROTONIX GGT AND TKO FLUIDS. PT HAS POOR APPETITE BUT HAS IMPROVED SOMEWHAT T/O SHIFT. FAMILY BRINGING IN FOODS THAT SOUND APPEALING. REMAINS ON TELE, CONTROLLED RATE. TYLENOL EFFECTIVE FOR PAIN. CONT PULMONARY TOILET, PT REMAINS ON 2L O2 AND CONT BIOX.
--- NOTE | 2020-03-30 08:01 | NUR ---
SUMMARY PT RESTED QUIETLY TONIGHT BETWEEN ASSIST FOR BM/VOID. PT HAD MULTIPLE BMS TONIGHT,LIQ TO PUDDING CONSISTENCY.I CALLED DR ELNZ TO ASK IF HE WOULD LIKE A CDIF SENT AND HE DEFERRED THIS TO DAY ROUNDING. DAY RN AGREES TO FOLLOW UP.
--- NOTE | 2020-03-30 16:59 | NUR ---
SUMMARY PT ALERT THIS AM AND TOOK MEDS WHOLE W/APPLESAUCE. THIS AFTERNOON, VERY SLEEPY. BARELY WAKES AND THEN RETURNS TO SLEEP. 02 SATS STABLE ON 2L NC. PT WAS UNABLE TO WORK W/THERAPY TODAY. HAVING INCONTINENT BMS AND VOIDS. CHANGED DRESSING TO RLE PER ORDERS. REMOVED MOISES DRESSING PER ORDER AND NOTED GREEN PURULENT DRAINAGE; NOTIFIED DR GILMORE AND PLACED EXUDRY DRESSING. PT RESTING W/EYES CLOSED AT THIS TIME. CALL LIGHT IN REACH.
--- NOTE | 2020-03-30 20:00 | NUR ---
RT NOTIFIED THIS RN ABOUT PT INC IN O2 NEEDS. STATES O2 INC TO 4LNC W/SATS 88%. THIS RN NAD VP LAB ROUNDED ON PT, VITALS TAKESM RR 32, SATS MID TO LOW 80'S, ON 4LNC, PT LETHARGIC, DIFFICULT TO AROUSE, WILL BREIFLY OPEN EYES, THEN GOES BACK TO SLEEP. NO VERBAL RESPONSE, PUPILS PINPOINT. PT HR SINUS 78 PER TELE MONITOR. HOSPITALIST NELL Quiles, ROUNDING, UPDATED ON PT STATUS. NEW ORDERS REC. AWAITING LAB AND IMAGING. DR GILMORE UPDATED, NEW ORDERS REC.
[2020-03-30 20:13] LABS: PCO2 Arterial 69.8 mmHg (35-45); PO2 Arterial 182 mmHg (80-100)
[2020-03-30 20:14] LABS: pH Blood Arterial 7.26 (7.35-7.45)
--- NOTE | 2020-03-30 20:15 | NUR ---
RAPID RESPONSE CALLED AT 2004 R/T DEC LOC AND NEW STAT ORDERS. SKETCH ARTIST TEAM ARRIVED/UPDATED. HOSTIPALIST AND NURSING GLASS CURVATURE GAUGER AT BEDSIDE. SATS NOW >95% ON 4LNC PLACED IN MOUTH, PT WOKE BRIEFLY, NO VERBAL RESPONSE. LABS SENT, PT OFF TO IMAGING. PLAN TO TX TO ICU.
[2020-03-30 20:18] LABS: Hematocrit 29.8 % (33.0-51.0); Hemoglobin 8.5 g/dL (11.5-16.0); Mean Corpuscular HGB 32.6 pg (26.0-34.0); Mean Corpuscular HGB Conc 28.5 g/dL (31.5-36.5); Mean Corpuscular Volume 114 fL (80-100); Mean Platelet Volume 8.6 fL (9.1-12.4); NRBC ABSOLUTE 0.03 K/mm3 (0.00-0.02); NRBC Auto 0.3 /100 WBC (0.0-0.2); Platelet Count 476 K/mm3 (150-400); RDW Coefficient Variation 14.2 % (11.7-14.2); RDW Standard Deviation 58.7 fL (35.1-46.3); Red Blood Cell Count 2.61 M/mm3 (3.80-5.20); White Blood Cell Count 10.37 K/mm3 (4.00-11.30)
[2020-03-30 20:38] LABS: BAND PERCENT MAN 7 % (0-8); BASOPHILS PERCENT MAN 0 % (0-2); EOSINOPHILS PERCENT MAN 0 % (0-6); LYMPHOCYTES PERCENT MAN 2 % (21-46); METAMYELOCYTE PERCENT MAN 1 % (0-0); MONOCYTES ABSOLUTE MAN 0.51 K/mm3 (0.16-1.47); MONOCYTES PERCENT MAN 5 % (4-13); NEUTROPHILS ABSOLUTE MAN 9.54 K/mm3 (1.96-9.15); SEG NEUTROPHILS PERCENT MAN 85 % (41-73); TOTAL CELLS COUNTED 100
[2020-03-30 20:46] LABS: Anion Gap 3 mmol/L (6-16); Blood Urea Nitrogen 17 mg/dL (8-24); Bun/Creatinine Ratio 25.3 (12.0-20.0); CO2, Blood 33 mmol/L (21-32); Chloride, Blood 103 mmol/L (98-108); Creatinine, Blood 0.67 mg/dL (0.40-1.00); Glomerular Filtration Rate >60 (60-); Glucose, Blood 125 mg/dL (70-99); Magnesium, Blood 2.3 mg/dL (1.6-2.4); Potassium, Blood 4.6 mmol/L (3.5-5.5); Sodium, Blood 139 mmol/L (136-145); Troponin I <0.015 ng/mL (0.000-0.040)
--- NOTE | 2020-03-30 20:53 | NUR ---
PT DAUGHTER VIMAL CALLED FOR UPDATE. DAUGHTER UPDATED ON PT CHANGES, AND TX TO ICU.
--- NOTE | 2020-03-30 21:15 | NUR ---
REPORT GIVEN TO ZIA LLANES RN.
[2020-03-30 21:21] LABS: Free Thyroxine 0.93 ng/dL (0.70-1.60)
--- NOTE | 2020-03-30 22:50 | NUR ---
PT. TRANSFER ARRIVAL TO ICU ROOM 7 @ 20:[address] PT. WAKES WITH VERBAL STIMULI, ANSWERS MOST ORIENTATION QUESTIONS APPROPRIATELY, A LITTLE LOST ON DATE. AWARE OF RECENT SURGERIES, UNCLEAR OF EVENTS OF TODAY. MOVES ALL EXTREMETIES, PERRLA, NO C/O NUMBNESS, TINGLING, LOSS OF SENSATION. ABLE TO MOVE RIGHT LEG WITH RELATIVE EASE. FOLLOWS COMMANDS. WHEN ARRIVED TO UNIT WOULD DOSE OFF WHEN LEFT ALONE FOR A FEW MINUTES. AT THIS TIME (22:45) WAKES WITH EASE, ABLE TO HOLD CONVERSATION THROUGH BIPAP, STILL FUZZY TO DETAILS OF TODAY. DOES COMPLAIN OF 5/10 ABDOMINAL PAIN, WILL TREAT WHEN FINISHED WITH NOTE. RECEIVED PRINTED CT REPORT, INFORMED DR. GILMORE OF SMALL FREE AIR AND APPEARANCE OF LOCULATED FLUID, PER DR. GILMORE HE WILL REVIEW CT IN MORNING, UNABLE TO REVIEW FILMS AT HOME. PT. STILL PASSING STOOL, HAD BM ON ARRIVAL TO UNIT. BOWEL TONES HYPOACTIVE. CALLED TO UPDATE DAUGHTER, VIMAL, SHE WILL LIKELY COME TO VISIT IN AM. WILL CONTINUE TO MONITOR.
--- NOTE | 2020-03-31 04:36 | NUR ---
03/31 @ 04:00 ENTERED ROOM PER PT. REQUEST, REMOVED BIPAP MASK. PT. ASKED REPEATEDLY IF I COULD GET HER HOME, STATED WE WOULD BE UNDERSERVING HER IF WE WERE TO SEND HER HOME RIGHT NOW, FAMILY MAY BE DISPLEASED TO COME IN AT 4 AM. PT. STATES "I AM READY TO GO HOME TO GOD," NOT WANTING ANY FURTHER TREATMENT, LABRATORY TESTS RUN, DOES NOT WANT BIPAP MASK ON ANY LONGER. PT. AGREEABLE TO MEDICATIONS LATER IN AM, WILL REVIEW POSSIBILITIES WITH DAY SHIFT. PT. IS FULLY AWAKE ALERT AND ORIENTED, APPEARS TO BE IN HER FULL AND RIGHT MIND.
--- NOTE | 2020-03-31 08:03 | NUR ---
AM NOTE... ASSUMED CARE OF PT ARPOX 0700, PT IS A&Ox4 WITH SOME CONFUSTION. PER REPORT PT TOLD NOC SHIFT RN THAT SHE WANTED TO GO COMFORT CARE, SHE DID NOT WANT ANYMORE SURGICAL INTERVENTIONS AT THIS TIME, SHE WANTED TO D/C HOME ON HOSPICE. PALLIATIVE CARE CONSULT IS IN. PT IS C/O OF 8/10 PAIN TO HER ABD AND BILAT KNEES. 2+ SWELLING NOTED TO HER BLE, NONPITTING EDEMA NOTED TO HER HIPS. L/S CLEAR T/O ON 2L NC WHICH IS HER BASELINE. BT PRESENT BUT VERY HYPOTENSIVE, ABD HAS MILD DISTENTION WITH TENDERNESS TO PALP. RIGHT KNEE HAS HERLINDA BANDAGE AND ICE PACK IN PLACE. CALL LIGHT IN REACH WILL CONTINUE TO MONITOR
--- NOTE | 2020-03-31 10:00 | NUR ---
Visit made to pt in ICU#7. Pt did not stir to voice or gentle touch. Her radial pulse feels thready. She is sl diaphoretic with resp rate at 20-22. She has her O2 nasal canula in her mouth. She was just recently medicated for pain and does appear comfortable with no nonverbal indicators noted of grimacing, frowning, fidgeting, distress or agitation, other than sl increased resp rate. Spoke to her RN at length re: what led up to transfer to ICU and recent health events of total knee replacement and abd surgery, CT of head and abd results from yesterday. Plan to return when family arrives. EMR reviewed further and we have a POLST on file dated 2007, signed by her PCP Dr Rand Looney. In 2007 pt requested DNR and comfort measures only. She has been consistent in her goals of care for at least the last twelve years. I will review POLST with family also.
--- NOTE | 2020-03-31 11:45 | NUR ---
PAL CARE COMFORT CARE VISIT - Family meeting with pt, jessica, and RN at bedside. Dr Mccray also joined in pt's room at tail end of family meeting. Pt was able to express her wishes clearly to her family. KAYLAH on file from 2005 reviewed with pt and family and she comfirms that she wants to pursue comfort care at this time. Approx 30 minutes spent discussing options, goals of care, what happens with comfort care transition, possible d/c home with hospice if pt stable for transport. Pt, with family and Dr support/agreement is opting for comfort care starting now. Comfort care orders obtained and entered with RN input. Per Dr's orders IV antibiotics and fluids d/c'd. Pt currently requesting and enjoying diet pepsi and 7 up PO with assist for handling cup and straw. No cough noted with swallow and pt does well with coaching for prevention of aspiration. Pt seems relieved once conversation complete and decisions made with family support. is not feeling like he is able to take pt home. We talked further about his concerns that "something would go wrong" and the support he would have with a hospice team and family members. The plan for today is to address pt's comfort as primary goal and find what medication regime works best to accomplish that and to reeval status and plans tomorrow. Dr fully aware as he was present, RN, CM and [facility] service line coordinator also updated. Hospice order entered with family contact details included. Pal Care will remain available to the pt/family the rest of the day and visit daily for s/s management and support to pt, family and staff. Pt currently getting fair pain relief with IV pain medication. Additional comfort care medications and tx included in comfort care orders. Pt in good spirits visiting with family when I left.
--- NOTE | 2020-03-31 15:35 | NUR ---
Spiritual care visit conducted. Patient is sitting up in bed (in ICU-7) and resting. Patient easily awakens to the sound of her name. I explain who I am and the department I am from. Patient smiles. I ask patient how she is holding up and she tells me, "Okay." I ask patient about family and her concerns but she only smiles at me. I ask patient if I could pray for her and she says, "Yes." I gladly provide prayer. I ask patient if I could get her anything and she says, "Pepsi." I provide a Pepsi and help her take a few sips then patient goes back to resting. I then deliver comfort care cart to rm 340, where patient will be transferred soon. I will continue to remain available to patient and family.
--- NOTE | 2020-03-31 15:41 | NUR ---
PT ARRIVED TO THE ROOM VIA GURNEY. PT TRANSFERED TO BED, BRIEF CHANGED, PT MADE COMFORTABLE. PT PROVIDED WITH DIET PEPSI PER REQUEST. ROXINOL ADMINISTERED FOR FOR PAIN.
--- NOTE | 2020-03-31 16:10 | NUR ---
PATIENT SLEEPING AT THIS TIME.
--- NOTE | 2020-03-31 17:14 | NUR ---
SHIFT SUMMARY PT A/O, FORGETFUL. PT ON COMFORT CARE. PT CAME TO THE FLOOR FROM THE ICU EARLY THIS AFTERNOON. FAMILY MEMBERS IN THE ROOM FOR MUCH OF THE AFTERNOON. PT MEDICATED FOR PAIN 1X UPON ARRIVAL AND DENIES PAIN AT THIS TIME. PT CURRENTLY SITTING UP IN BED TALKING WITH FAMILY MEMBERS.
--- NOTE | 2020-04-01 05:30 | NUR ---
SHIFT SUMMARY PT HAS HAD NO ACUTE CHANGES THIS SHIFT, PT AWAKE & ALERT AT START OF SHIFT, DENIED PAIN, FAMILY AT BEDSIDE UNTIL ABOUT 2300, PT SLEPT FROM ABOUT 2000 T/O THE NIGHT, PREMEDICATED 1X FOR DRESSING CHANGE & BRIEF CHANGE, PT DID NOT AWAKEN FOR ADDITIONAL REPOSITIONS. PT APPEARS TO BE SLEEPING AT THIS TIME, CALL LIGHT IN REACH, WILL CONT TO MONITOR UTNIL REPORT GIVEN TO DAY RN.
--- NOTE | 2020-04-01 08:50 | NUR ---
CLAUS CELIS AT BEDSIDE. DR. LUGO AT BEDSIDE REMOVING PAULINE FROM R KNEE. DRESSING REPLACED AND PATIENT REPOSITIONED. PATIENT VERY DROWSY, PAINFUL WITH MOVEMENT, OTHERWISE COMFORTABLE. PATIENT AND FAMILY DENY ANY NEEDS AT THIS TIME.
--- NOTE | 2020-04-01 10:47 | NUR ---
PATIENT SLEEPING AT THIS TIME. FAMILY AT BEDSIDE, DENIES ANY NEEDS.
--- NOTE | 2020-04-01 11:50 | NUR ---
Spiritual care visit conducted. Patient is sitting up in bed and resting. Several family members are bedside. They tell me about the recent decisions made about patient and the emotional ache that accompanies those decisions. I listen empathically and provide prayer. Family becomes tearful during the prayer but verbalize appreciation for the visit and the prayer. I will continue to remain available to patient and family.
--- NOTE | 2020-04-01 12:12 | NUR ---
PATIENT REPOSITIONED TO L SIDE. ATTENDS CHANGED. ICE REMOVED FROM R KNEE. PATIENT MEDICATED WITH ROXINOL AT PATIENT REQUEST. HEELS FLOATED. FAMILY AT BEDSIDE ASSISTING WITH CARE.
--- NOTE | 2020-04-01 16:33 | NUR ---
spent time with daughter reviewing care. pt became aggitatd with us taking and stimulation. Daughter is still wanting to stay the course. Family arriving tomorrow. Hope is some rehab pottential.
--- NOTE | 2020-04-01 17:20 | NUR ---
ATTENDS CHANGED AND PATIENT REPOSITIONED TO L SIDE. MEDICATING WITH ROXINOL PRIOR TO REPOSITIONING FOR PATIENT COMFORT. HEELS FLOATED AND POLAR PACK TO R KNEE PLACED. PATIENT WARM TO TOUCH, MULTIPLE BLANKETS REMOVED.
--- NOTE | 2020-04-01 17:22 | NUR ---
MARS PLACED AT PATIENT AND FAMILY REQUEST. PATIENT PREMEDICATED WITH ROXINOL IN ORDER TO TOLERATE REPOSITIONING. PATIENT PLACED SUPINE AND IS NOW RESTING COMFORATBLY. FAMILY SPEAKING WITH HOME HEALTH NURSE, BED ALARM SET FOR SAFETY.
[2020-04-01 17:26] LABS: Source, Urine Catheter
[2020-04-01 17:33] LABS: Bilirubin, Urine Neg (Neg); Blood, Urine 1+ (Neg); Glucose Qualitative, Urine Neg (Neg); Ketones, Urine Neg (Neg); Leukocyte Esterase, Urine Neg (Neg); Nitrite, Urine Neg (Neg); Protein, Urine 2+ (Neg); Urobilinogen, Urine NORM (Normal)
[2020-04-01 18:03] LABS: Appearance, Urine Clear (Clear); Color, Urine Yellow (P-Yellow)
[2020-04-01 18:05] LABS: Bacteria Not Seen /hpf; Mucus Mod (0-Heavy); Red Blood Cells, Urine Not Seen /hpf (0-2); White Blood Cells, Urine Not Seen /hpf (0-5)
[2020-04-01 18:06] LABS: Amorphous Light (0-Heavy); Hyaline Casts 0-2 /lpf (0-2); Squamous Epithelial Cells Rare /hpf (Few)
--- NOTE | 2020-04-01 18:18 | NUR ---
PATIENT VERY PANFUL WITH MOVEMENT THIS SHIFT. MARS PLACED FOR COMFORT AT PATIENT REQUEST. FAMILY SUPPORTIVE AND AT BEDSIDE FOR MOST OF THE DAY. POLAR PACK TO R KNEE. STATPLES REMOVED TODAY BY THE DOCTOR AND R NOAH DRESSING CHANGED. ABD TO ABDOMEN WNL. FALL PRECAUTIONS IN PLACE PER UNIT PROTOCOL.
--- NOTE | 2020-04-01 23:48 | NUR ---
PT MOVED TO 313 PT REMIANS PAINFUL W/MOVEMENT, 2 FAMILY MEMBERS AT BEDSIDE FOR THE NIGHT, MOVED TO ROOM 313 TO ACCOMAODATE ROOM FOR FAMILY, PT REPOS Q2, ALL BELONGINGS MOVED, DAUGHTER NOTIFYING REST OF FAMILY, REPORT GIVEN TO THAIS REZA TO ASSUME CARE.
--- NOTE | 2020-04-02 06:47 | NUR ---
patient arrived to room 313 appearing to be comfortable and sleeping in her bed. comfort care assessments and tx provided to patient and family q two hours and as needed. Patient's arms are now approx 2-3+ edematous, and patient cries out when she is even slightly moved. both arms elevated on pillows for comfort. Family very attentive.
--- NOTE | 2020-04-02 11:35 | NUR ---
FAMILY STATES PATIENT IS COMFORTABLE. FAMILY ASSISTING WITH ORAL CARE, EDUCATED ON RISK OF ASPIRATION AND TO MAINTAIN NPO IF PATIENT IS OBTUNDED. FAMILY AGREEABLE.
--- NOTE | 2020-04-02 12:00 | NUR ---
RECEIVED VERBAL ORDER FROM DR. AJ FOR MORPHINE DRIP STARTING AT 2MG/HR AND TITRATE UP TO 10MG/HR NEEDED TO MANAGE PAIN. PATIENT IS AT END OF LIFE. PATIENT APPEARS COMFORTABLE WHEN RESTING, HOWEVER, WITH MOVEMENT AND REPOSITIONING, PATIENT IS VERY PAINFUL. ALSO RECEIVED ORDER FOR TYLENOL 500MG PER RECTAL NEEDED FOR FEVER.
--- NOTE | 2020-04-02 16:11 | NUR ---
Call back- Pt's son, GD, and other family are present. Paliative care RN T was accompanied this conventional mortgage underwriter. Verbal prayer was offered and son appeared to be grieving appropriately.
--- NOTE | 2020-04-02 16:11 | NUR ---
Family informed staff RE patient not breathing and possible having had passed. Patient found unresponsive in bed at 1530 with repirations, pulse, and heart beat absent. No breath sounds auscultated. No code called per Comfort Care orders. Charge Nurse Deborah at bedside, Nursing Case Work Aide Simon notified, Dr. Mccray informed. Environmental Safety Specialist and Palliative care team are involved. home will be [facility] In[facility] Crem[facility] and Burial Service per family. Morphine drip stopped and wasted with power electronics research engineer. Dentures remain in mouth.
== END 2020-04-02 15:30 | DRG 326 ==
LOC: ER 22:16 → MEDS 03-19 01:05 → ICUE 03-19 01:05 → MEDS 03-19 01:32 → ICUE 03-19 09:36 → SURS 03-21 16:11 → PCU 03-21 18:30 → SURS 03-22 10:08 → ICUE 03-30 20:40 → MEDS 03-31 13:46
PROVIDERS: Emergency Medicine; Family Medicine; Internal Medicine; Internal Medicine Critical Care Medicine; Nurse Practitioner Acute Care; Student in an Organized Health Care Education/Training Program; Surgery; ADMIT Internal Medicine
PROC: 0BH17EZ Insertion of Endotracheal Airway into Trachea, Via Natural or Artificial Opening (ICD-10-PCS; 2020-03-19)
PROC: 5A1945Z Respiratory Ventilation, 24-96 Consecutive Hours (ICD-10-PCS; 2020-03-19)
PROC: 0D9670Z Drainage of Stomach with Drainage Device, Via Natural or Artificial Opening (ICD-10-PCS; 2020-03-19)
PROC: 0DQ70ZZ Repair Stomach, Pylorus, Open Approach (ICD-10-PCS; 2020-03-19)
PROC: 0DU907Z Supplement Duodenum with Autologous Tissue Substitute, Open Approach (ICD-10-PCS; principal; 2020-03-19 08:00)
DX: K26.5 Chronic or unspecified duodenal ulcer with perforation (principal); J69.0 Pneumonitis due to inhalation of food and vomit; J96.21 Acute and chronic respiratory failure with hypoxia; I47.1 Supraventricular tachycardia; J98.11 Atelectasis; D62 Acute posthemorrhagic anemia; K91.840 Postprocedural hemorrhage of a digestive system organ or structure following a digestive system procedure; Z20.828 Contact with and (suspected) exposure to other viral communicable diseases; Z79.82 Long term (current) use of aspirin; Z51.5 Encounter for palliative care; Z96.651 Presence of right artificial knee joint; F17.210 Nicotine dependence, cigarettes, uncomplicated; Z90.12 Acquired absence of left breast and nipple; E86.0 Dehydration; K59.00 Constipation, unspecified; Z99.81 Dependence on supplemental oxygen; Z96.642 Presence of left artificial hip joint; I10 Essential (primary) hypertension; J44.9 Chronic obstructive pulmonary disease, unspecified; I48.0 Paroxysmal atrial fibrillation; G57.31 Lesion of lateral popliteal nerve, right lower limb; B37.3 Candidiasis of vulva and vagina; I27.20 Pulmonary hypertension, unspecified
CPT/HCPCS: 31720; 36415; 36600; 70450; 71045; 71046; 71260; 73560-RT; 74018; 74176; 74177; 80048; 80053; 80061; 80069; 81001; 82803; 82947; 83605; 83690; 83735; 83880; 84100; 84439; 84443; 84478; 84484; 85025; 85379; 87070; 87086; 87106; 87205; 88300; 92610; 93005; 93010; 93306; 94002; 94003; 94640; 94660; 94762; 96361; 96374; 96375; 97110; 97116; 97162; 97163; 97166; 97530; 97535; 99285-25; A9270; A9270-GY; C1713; C1751; C1776; C9113; J0171; J0690; J0735; J0780; J1160; J1650; J1885; J1940; J2250; J2270; J2370; J2405; J2543; J2704; J2765; J2795; J3010; J7030; J7040; J7042; J7050; J7060; J7120; P9046; Q9967; U0002